=== PATIENT | male | born 1975 | race Caucasian/White ===

== ENCOUNTER 2016-03-21 17:39 | Emergency (ER) | payer BC ==
[2016-03-21] MEDS ORDERED: KETOROLAC 60 MG/2 ML VIAL IM ONE (19:20)
== END 2016-03-21 19:47 | disposition home or self-care (01) ==
LOC: ER 17:39
DX: S52.572A Other intraarticular fracture of lower end of left radius, initial encounter for closed fracture (principal); W18.2XXA Fall in (into) shower or empty bathtub, initial encounter; Y93.E1 Activity, personal bathing and showering; Y92.091 Bathroom in other non-institutional residence as the place of occurrence of the external cause
CPT/HCPCS: 96372